=== PATIENT | female | born 2005 | race Two or more races ===

== ENCOUNTER 2024-06-07 15:58 | Observation (INO) | payer MEDICAID, SELFPAY ==
[2024-06-07 16:13] VITALS: BP 112/63; PULSE 115; RESP 16; RESP 99; TEMP 37.3
[2024-06-07 16:17] VITALS: BP 112/63; PULSE 115
[2024-06-07 16:20] VITALS: BMI 20.8
[2024-06-07 16:38] VITALS: BP 107/70; PULSE 115
[2024-06-07 16:57] LABS: Collection Type, Urine Clean Catch
[2024-06-07] MEDS: PROMETHAZINE INJ 25 MG/ML VIAL IM (16:59)
[2024-06-07] MEDS: MEPERIDINE INJ 50 MG/ML VIAL IM (16:59)
[2024-06-07 17:06] LABS: Bacteria,Urine Rare; Bilirubin,Urine Negative (Negative); Blood,Urine Negative (Negative); Clarity,Urine Clear (Clear/Hazy); Color,Urine Lt-Yellow (Lt Yel-Yel); Glucose, Urine Negative (Negative); Ketones,Urine Negative (Negative); Leukocyte Esterase,Urine Negative (Negative); Nitrite,Urine Negative (Negative); Protein,Urine Negative (Neg - Trace); RBC,Urine 1 /hpf (0-3); Specific Gravity,Urine 1.005 (1.001-1.035); Squamous Epithelial Cell,Urine 2 /hpf (0-5); Urobilinogen,Urine Negative mg/dL (0.0-1.0); WBC,Urine < 1 /hpf (0-5)
== END 2024-06-07 17:10 | disposition home or self-care (01) ==
PROVIDERS: Admitting Provider Specialist; Visit Provider Specialist
DX: O26.892 Other specified pregnancy related conditions, second trimester (principal); Z3A.26 26 weeks gestation of pregnancy; M54.50 Low back pain, unspecified
CPT/HCPCS: 59025; 59899; 81001; 87086; 96372; J2175; J2550

== ENCOUNTER 2024-08-14 16:56 | Observation (INO) | payer MEDICAID, SELFPAY ==
[2024-08-14 17:10] VITALS: BP 105/62; PULSE 73
[2024-08-14 17:18] VITALS: BP 105/62; PULSE 73; RESP 16; RESP 99; TEMP 36.7; O2SAT 99; BMI 23.2
[2024-08-14 18:07] VITALS: BP 112/67; PULSE 84
== END 2024-08-14 19:26 | disposition home or self-care (01) ==
PROVIDERS: Admitting Provider Specialist; Visit Provider Specialist
DX: O47.03 False labor before 37 completed weeks of gestation, third trimester (principal); Z3A.36 36 weeks gestation of pregnancy
CPT/HCPCS: 59025; 59899; G0378

== ENCOUNTER 2024-08-16 18:05 | Observation (INO) | payer MEDICAID, SELFPAY ==
[2024-08-16 18:10] VITALS: BMI 23.2
[2024-08-16 18:44] VITALS: BP 112/69; PULSE 104; RESP 18; TEMP 36.9; O2SAT 98
--- NOTE | 2024-08-16 18:52 | EKG_ITS ---
[facility] Test Date: 2024-08-16 Pat Name: FAISAL CAMPOS Department: Room: - Gender: Female Health Coordinator: : 2005 Requested By: Froy Chung Order Number: [id number] Reading MD: Froy Chung Measurements Intervals [place] Rate: 99 P: 60 MO: 144 QRS: 41 QRSD: 77 T: 40 QT: 333 QTc: 428 Interpretive Statements SINUS RHYTHM No previous ECG available for comparison /store/S0/[id number]/ecg/[id number].pdf
--- NOTE | 2024-08-16 18:52 | PD.EDPREG ---
ED OB Contraction Preg RMI/HPI General Chief complaint: Nausea/Vomiting/Diarrhea Stated complaint: SOB, NOT EATING OR DRINKING, COUGH Time Seen by Provider: 08/16/24 18:46 Arrival date/time: 08/16/24 18:05 RME / HPI RME / HPI Narrative: This section includes all my notes and documentations, including HPI, PE, and ED course. Froy Smalls MD HPI: 18-year-old female here to be evaluated with multiple symptoms. She is currently . Based on EDC 09/08/2024, GA today is 36 5/7 weeks. After eating about 2 hours ago, she reports upper abdominal pain and chest pain and upper back pain and nausea and diffuse numbness. Reports decreased movement. No bleeding. No other complaints. ROS: All negative except as documented in HPI. Physical Exam: General: Alert and oriented. No acute distress when remaining still. Eyes: Conjunctivae and lids clear. ENT: No nasal congestion. Neck: Supple. Heart: RRR. Lungs: No respiratory distress. Good air movement. No rhonchi, wheezing, rales. Abdomen: Soft and nontender. Normal bowel sounds. No distension. No rebound or guarding. Fundal height consistent with dates. Back: No CVA tenderness. Skin: Warm and dry. Neuro: Alert and oriented X 3. My interpretation of the EKG is NSR (99 bpm) with no ST?T changes. Patient is clear for further evaluation by our L&D department. Froy Smalls MD Related Data Home Medications ?Medication ?Instructions ?Recorded ?Confirmed aspirin 81 mg capsule 81 mg PO QDAY 06/07/24 08/14/24 vits no.124-ferrous fum 1 tab PO QDAY 06/07/24 08/14/24 27 mg iron-folic acid 800 mcg tablet ( Vitamin) Allergies Allergy/AdvReac Type Severity Reaction Status Date / Time No Known Allergies Allergy Verified 08/16/24 18:10 Course Quality Measures none Orders Category Date Time Status EKG (ED ONLY) *Do not use* NOW Care 08/16/24 18:52 Active EKG (ED Only) Stat Exams 08/16/24 18:52 Draft Vital Signs Vital signs: Vital Signs Temperature 98.4 F 08/16/24 18:44 Pulse Rate 104 H 08/16/24 18:44 Respiratory Rate 18 08/16/24 18:44 Blood Pressure 112/69 08/16/24 18:44 Pulse Oximetry (%) 98 08/16/24 18:44 Oxygen Delivery Method Room Air 08/16/24 18:44 OB/Uterine Contractions Patient data External records reviewed:: [facility] previous records Clinical information provided by:: patient Social determinants that could affect healthcare access:: none Patient has the following chronic illnesses:: Current in third trimester. How is presenting disease/condition affected by chronic disease/condition?: exacerbated by Evaluation data The following diagnostics were reviewed and interpreted by me:: EKG tracing(s) (My interpretation of the EKG: NSR (99 bpm) with no ST-T changes. Froy Smalls MD) Lab and/or radiology exams considered but not ordered:: None Interpretation Summary: Normal EKG Medications / Prescriptions Medications or Prescriptions considered but not ordered:: None Medication administrations:: None Consultations Consultation(s) initiated? (list below): No Diagnosis OB Contractions Differential Diagnosis: premature labor and other (GERD, PUD, gastritis) Most likely diagnosis given after review of the tests above:: labor Admission Indicated Admission indicated?: not indicated Explain why admission is indicated or not indicated:: Needs further evaluation by our L&D department. Admission Request Was there a request for admission?: No Disposition Plan Disposition Plan: other (specify) (Further care at our L&D department.) Discharge Plan Plan Patient Disposition: Admit Acute Care w/in Hospital Prescriptions/Referrals Prescriptions/Med Rec: No Action Vitamin 27 mg iron- 800 mcg Tablet 1 tab PO QDAY aspirin 81 mg Capsule 81 mg PO QDAY Referrals: Katelynn Mohamud NP [Primary Care Provider] - In 1 week Problem List Clinical Impression: Abdominal pain Patient/Caregiver Discharge Instructions Additional Instructions: Instructions from Dr. Smalls: After evaluation in the emergency room, including vitals and EKG, you are medically cleared for further evaluation at our L & D department. Print Language: Russian Stand Alone Forms: Beatrice Award Info., Patient Portal Info Letter
[2024-08-16 19:28] VITALS: BP 105/63; PULSE 86; RESP 18; RESP 98; TEMP 37.1
[2024-08-16 19:31] VITALS: BMI 23.2
== END 2024-08-16 19:53 | disposition home or self-care (01) ==
LOC: SERX 19:10 → S4SX 19:24
PROVIDERS: Admitting Provider Specialist; Emergency Provider Emergency Medicine; PCP Nurse Practitioner Family; Visit Provider Specialist
DX: O26.893 Other specified pregnancy related conditions, third trimester (principal); R10.10 Upper abdominal pain, unspecified; R07.9 Chest pain, unspecified; M54.6 Pain in thoracic spine; O36.8130 Decreased fetal movements, third trimester, not applicable or unspecified; Z3A.36 36 weeks gestation of pregnancy
CPT/HCPCS: 59025; 59899

== ENCOUNTER 2024-08-27 11:58 | Observation (INO) | payer MEDICAID, SELFPAY ==
[2024-08-27 12:00] VITALS: BP 122/76; PULSE 100; RESP 100; RESP 18; TEMP 36.6
[2024-08-27 12:02] VITALS: BMI 23.8
[2024-08-27 12:07] VITALS: BP 122/76; PULSE 100
[2024-08-27 12:41] LABS: ROM Kit Lot # 578010271; Swb Mxed in Solvent 1 min? Yes
[2024-08-27 12:42] LABS: ROM Swab Mixed By: PAUC1; Rupture of Fetal Membranes Negative (Negative)
[2024-08-27 13:08] VITALS: TEMP 36.6
== END 2024-08-27 13:05 | disposition home or self-care (01) ==
PROVIDERS: Admitting Provider Obstetrics & Gynecology; Visit Provider Obstetrics & Gynecology
DX: Z34.03 Encounter for supervision of normal first pregnancy, third trimester (principal); Z3A.38 38 weeks gestation of pregnancy
CPT/HCPCS: 59025; 59899; 84112

== ENCOUNTER 2024-09-14 04:07 | Inpatient (IN) | payer MEDICAID, SELFPAY ==
[2024-09-14] VITALS (198 sets, daily range): BP systolic 95–147; BP diastolic 49–79; PULSE 62–107; RESP 18; TEMP 36.7–36.8; O2SAT 87–100; BMI 24.7
[2024-09-14 04:55] LABS: Basophils % (Auto) 0 % (0-2.5); Eosinophils # (Auto) 0.1 Thou/mm3 (0.0-0.5); Eosinophils % (Auto) 1 % (0-10); Hematocrit 34.5 % (36.0-46.0); Immature Granulocytes % (Auto) 1 % (0-0); Immature Granulocytes Auto 0.09 Thou/mm3 (0.00-0.00); Lymphocytes # (Auto) 1.6 Thou/mm3 (1.0-4.8); Lymphocytes % (Auto) 16 % (10-50); Mean Corpuscular HGB Conc 34.8 g/dl (31.0-37.0); Mean Corpuscular Hemoglobin 31.2 pg (25.0-35.0); Mean Corpuscular Volume 90 fL (80-100); Monocytes # (Auto) 0.7 Thou/mm3 (0.0-0.8); Monocytes % (Auto) 7 % (0-12); Neutrophils # (Auto) 7.4 Thou/mm3 (1.8-7.7); Neutrophils % (Auto) 75 % (37-80); Nucleated Red Blood Cell % 0 /100 WBC (0); Platelet Count 110 Thou/mm3 (140-440); RDW Standard Deviation 44.7 fL (36.4-46.3); Red Blood Count 3.85 Miln/mm3 (4.00-5.20); White Blood Count 9.9 Thou/mm3 (3.6-11.0)
--- NOTE | 2024-09-14 05:03 | XR_ITS ---
Examination: Complete OB ultrasound greater than 14 weeks Date and time of exam: September 14, 2024 0530 hrs. Indications: Pelvic contractions beginning 2 days ago Findings: Viable intrauterine single fetus with single amniotic sac presentation cephalic Cardiac motion 155 BPM Placenta anterior grade 3 Amniotic fluid index 8.9 cm Ovaries obscured by bowel gas. Composite estimated gestational age based on BPD, head circumference, abdominal circumference, femur length is 39 weeks 6 days Estimated weight 3901.7 g. Survey of intracranial anatomy, spinal anatomy, abdominal anatomy, four-chamber heart performed with no abnormalities identified. Impression: Viable intrauterine gestation cephalic presentation.
[2024-09-14 05:09] LABS: Amphetamine/Metham Scrn,Ur OB Negative (Negative); Benzoylecgonine Screen, Ur OB Negative (Negative); Opiate Screen,Urine OB Negative (Negative); THC Screen,Urine OB Negative (Negative)
[2024-09-14 05:24] LABS: Syphilis Nonreactive (Nonreactive)
--- NOTE | 2024-09-14 08:51 | PD.LDPN ---
Documentation for date of: 09/14/24 OB Labor Progress Note Pain Control Comments: None Pelvic Exam Dilation (cm): Close Effacement (%): Long Comments: Cephalic by ultrasound Contractions Contraction frequency: Irregular Status Comments: Category 1 Assessment and Plan Comments: Cervical ripening followed by Pitocin when Zamora score is adequate
--- NOTE | 2024-09-14 09:11 | PD.LDHP ---
Documentation for date of: 09/14/24 OB Labor/Induct. HPI History of Present Illness Comments: H and P dictated on STAT line #9 in [place] [id number] Meds Home Medications and Allergies Home Medications ?Medication ?Instructions ?Recorded ?Confirmed ?Type aspirin 81 mg capsule 81 mg PO QDAY 06/07/24 09/14/24 History vits no.124-ferrous fum 1 tab PO QDAY 06/07/24 09/14/24 History 27 mg iron-folic acid 800 mcg tablet ( Vitamin) metronidazole 500 mg tablet mg 09/14/24 History Allergies Allergy/AdvReac Type Severity Reaction Status Date / Time No Known Allergies Allergy Verified 09/14/24 04:22 OB Exam Physical Exam Vital signs: Pulse BP Pulse Ox 82 115/60 97 09/14/24 08:38 09/14/24 08:38 09/14/24 09:07 OB Results Labs 09/14/24 04:30 Labs: Short CBC 09/14/24 Range/Units 04:30 WBC 9.9 (3.6-11.0) Thou/mm3 Hgb 12.0 (12.0-16.0) g/dL Hct 34.5 L (36.0-46.0) % Plt Count 110 L (140-440) Thou/mm3
[2024-09-14] MEDS: MISOPROSTOL 50 mCg TABLET PO ×3 (09:15→17:48)
--- NOTE | 2024-09-14 10:19 | ESHP_ITS ---
RE: FAISAL CAMPOS : 2005 DATE OF ADMISSION: 09/14/2024 HISTORY OF PRESENT ILLNESS: This is a 19-year-old 1, para 0 with intrauterine at 40 weeks and 6 days, who presents for induction of labor for postdates. The patient denies any leaking or bleeding. She reports normal movement. Her care is complicated by gestational thrombocytopenia with platelet count as low as 86,000 on 07/24/2024. Most recent platelet count was 97,000. The patient also used marijuana in the first trimester. She has had iron deficiency anemia for which she has been taking iron. ALLERGIES: NO KNOWN DRUG ALLERGIES. MEDICATIONS: 1. multivitamin one p.o. daily. 2. Baby aspirin 81 mg one p.o. daily to prevent preeclampsia. 3. Ferrous sulfate 325 mg one p.o. daily. PAST MEDICAL HISTORY: Gestational thrombocytopenia, iron deficiency anemia. SOCIAL HISTORY: She denies any alcohol, drug use, or smoking. She is single. Marijuana use with a positive urine drug screen on 03/25/2024. FAMILY HISTORY: Denies. PAST SURGICAL HISTORY: Denies. REVIEW OF SYSTEMS: She denies any chest pain, palpitations, cough, fever, shortness of breath, or lower extremity pain. She denies any headache, change in vision or right upper quadrant pain. PHYSICAL EXAMINATION: VITAL SIGNS: Blood pressure is 110/74, heart rate 88, respirations 18, temperature is 98.6. HEENT: Oropharynx and sclerae are clear. LUNGS: Clear to auscultation bilaterally. HEART: Regular rate and rhythm. ABDOMEN: Gravid consistent with estimated weight, 8.5 pounds. PELVIC: Per RN is closed and long. Ultrasound confirms cephalic presentation. EXTREMITIES: Nontender. SKIN: No gross rashes or lesions. NEUROLOGIC: No focal deficit. ASSESSMENT AND PLAN: Intrauterine at 40 weeks and 6 days, postdates induction of labor. Anticipate spontaneous vaginal delivery. Informed consent was obtained. The patient was made aware of the risks, complications, alternatives, and benefits of the proposed procedure and she agrees. She is aware of the risk of operative vaginal delivery and delivery, who agrees with these mode of delivery if indicated. DT: 09:10:01 TT: 10:03:00 Ref: [id number] - TID: [id number] [facility]
[2024-09-14] MEDS: fentaNYL CIT INJ 50 mCg/ML AMP 2ML 100 MCG IV ×2 (21:02→23:10)
[2024-09-15] VITALS (27 sets, daily range): BP systolic 94–123; BP diastolic 64–84; PULSE 82–110; RESP 15–18; TEMP 36.4–37.7; O2SAT 93–100
--- NOTE | 2024-09-15 00:35 | PD.LDPN ---
Documentation for date of: 09/15/24 OB Labor Progress Note Pain Control Comments: Fentanyl Pelvic Exam Dilation (cm): 8 Effacement (%): 80 station: 0 Amniotic membrane status: Ruptured Comments: Vaginal bleeding Contractions Contraction frequency: q3 m Status status: Category ll Assessment and Plan Comments: Vaginal bleeding consistent with placental abruption Emergency delivery Informed consent was obtained the patient was made aware the risk complication alternative benefits of the proposed procedure and she agrees
[2024-09-15] MEDS: FAMOTIDINE INJ 10 MG/ML VIAL 2 ML 20 MG IV (00:48)
[2024-09-15] MEDS: ceFAZolin/D5W 2 GM IV 2 GM/100 ML BAG IV (00:48)
--- NOTE | 2024-09-15 01:39 | PD.LDDS ---
DS: Providers Provider Date of admission: 09/14/24 04:07 Primary care physician: JULISSA Rowe MD Admitting Provider: Michelle Simeon MD ([facility]) Attending Provider on Admission: Elan Joy MD Attending Provider on DC: Elan Joy MD Discharging Provider: Elan Joy MD DS: Diagnosis Discharge Diagnosis (1) delivery delivered: Status: Acute (2) Placenta abruption, delivered, current hospitalization: Status: Acute (3) Post-dates : Status: Acute (4) Gestational thrombocytopenia: Status: Acute Problem List Completed Was Problem List Reviewed/Reconciled?: Yes Summary/Hosp Course Brief History: Placental abruption in active labor Peripartum Data Delivery Method: Low Transverse Exam Vital Signs Temp Pulse Resp BP Pulse Ox 98.3 F 89 18 115/67 99 09/14/24 19:23 09/15/24 00:38 09/14/24 16:00 09/15/24 00:38 09/15/24 00:51 Discharge Plan Plan Patient Disposition: HOME (Self Care) Patient condition on transfer: Stable Prescriptions/Referrals Prescriptions/Med Rec: New hydrocodone-acetaminophen 5-325 mg tablet 1 tab PO Q6H MDD 4 PRN (Reason: pain) Qty: 20 0RF ibuprofen 600 mg tablet 600 mg PO Q6H PRN (Reason: pain) Qty: 30 0RF Continued Vitamin 27 mg iron- 800 mcg Tablet 1 tab PO QDAY Discontinued aspirin 81 mg Capsule 81 mg PO QDAY metronidazole 500 mg tablet Patient Comments: Take 1 tablet by mouth twice a day Referrals: Shaquille Allen MD [Primary Care Provider] - Patient/Caregiver Discharge Instructions Discharge Activity: activity as tolerated Other Discharge Activity Instructions:: Follow up office with Dr Joy in 1 week. Print Language: Occitan Stand Alone Forms: Beatrice Award Info., Patient Portal Info Letter Planned Discharge Date 09/16/24
[2024-09-15] MEDS: MISOPROSTOL 200 mCg TABLET 800 MCG PR (01:48)
--- NOTE | 2024-09-15 01:55 | ESOP_ITS ---
Operative Note - PROJECT MANAGEMENT ENGINEER Procedure Date of procedure: 09/15/24 Procedure Performed: Primary low-transverse delivery via Pfannenstiel skin incision Indication: Placental abruption Pre-Op diagnosis: Intrauterine at 41 weeks gestation Induction of labor for postdates Active labor Category 2 tracing with episodes of prolonged decelerations Excessive vaginal bleeding suspect placental abruption Post-Op diagnosis: Intrauterine at 41 weeks gestation Induction of labor for postdates Active labor Category 2 tracing with episodes of prolonged decelerations Placental abruption Tight nuchal cord Body cord Anesthesia type: Spinal Procedure description: * Fluids: crystalloid Specimen: other (Placenta) Estimated blood loss (ml): 900 Findings: Viable infant Apgars 8 and 9 , cephalic presentation, occiput posterior, tight nuchal cord, body cord, placental abruption, uterus ovaries and fallopian tubes grossly within normal limits, placenta removed complete and intact. Complications: other (Uterine atony) Narrative: After proper informed consent was obtained and the patient made aware the risk complications alternatives and benefits of the proposed procedure she was taken to the operating room where she underwent duction of rapid spinal anesthesia. She was prepped and draped you sterile fashion. A timeout was performed. The Pfannenstiel skin incision was made with scalpel carried through to the underlying layer fascia with the Bovie. The fascia was nicked in the midline incision extended bilaterally the Bovie. The superior aspect the fascial incision was grasped with a Randolph clamps elevated the underlying rectus muscle dissected off with the Bovie the inferior aspect the fascial incision was then grasped with Bo clamps elevated the underlying rectus muscle dissected off with the Bovie. The rectus muscles were in the midline and the peritoneum was grasped between 2 Baca clamps and entered sharply with the Metzenbaum scissors. The incision was extended superiorly and inferiorly with good position of bladder. The bladder blade was then inserted and the vesicouterine peritoneum incised transversely and bladder flap created digitally. The 's head delivered the mouth and nose suctioned with the bulb suction the tight nuchal cord was reduced the shoulders delivered atraumatically, mouth and nose suction with bulb suction cord was clamped and cut and the infant was handed off waiting pediatric staff Cord blood and gases were sent. Placental abruption was noted. The placenta was almost completely detached from the wall of the uterus. The uterus was exteriorized and cleared of all clots and debris. The uterine incision was closed with #1-0 chromic catgut suture in a running locking fashion. A second layer of the same suture was used imbricate the first layer obtain excellent hemostasis. The vesicouterine peritoneum was closed with 2-0 chromic catgut suture. The fundus was firm the uterus was returned to the abdomen the gutters were cleared of all clots and debris the peritoneum closed with 0 chromic catgut suture running fashion. The muscle closed with 0 chromic suture running fashion. The subfascial layer was found to be hemostatic. The fascia was closed with 0 Vicryl beginning at each angle and ending at the center in a running fashion. The subcutaneous tissue was irrigated with normal saline solution found to be hemostatic closed with 2-0 chromic catgut suture running fashion. The skin was closed with 4-0 Monocryl and covered with Dermabond perineal dressing. And covered with sterile pressure dressing. The fundus was firm at the end of the procedure she tolerated the procedure well she was hemodynamically stable. I discussed with the patient the nature of her condition, the intraoperative findings, the expectation for recovery all questions answered. Surgical staff Pedro Harrys AMY Campa CRNA Diagnosis Discharge Diagnosis (1) Post-dates : Status: Acute (2) Placenta abruption, delivered, current hospitalization: Status: Acute (3) delivery delivered: Status: Acute Problem List Completed Was Problem List Reviewed/Reconciled?: Yes
[2024-09-15] MEDS: OXYTOCIN in NS 20 units 20 UNIT/1,000 ML BAG 125 UNIT IV (02:00)
[2024-09-15 06:16] LABS: Basophils % (Auto) 0 % (0-2.5); Eosinophils % (Auto) 0 % (0-10); Hematocrit 33.2 % (36.0-46.0); Hemoglobin 11.4 g/dL (12.0-16.0); Immature Granulocytes % (Auto) 1 % (0-0); Immature Granulocytes Auto 0.11 Thou/mm3 (0.00-0.00); Lymphocytes % (Auto) 6 % (10-50); Mean Corpuscular HGB Conc 34.3 g/dl (31.0-37.0); Mean Corpuscular Hemoglobin 30.8 pg (25.0-35.0); Mean Corpuscular Volume 90 fL (80-100); Monocytes # (Auto) 1.1 Thou/mm3 (0.0-0.8); Monocytes % (Auto) 6 % (0-12); Neutrophils # (Auto) 15.8 Thou/mm3 (1.8-7.7); Neutrophils % (Auto) 88 % (37-80); Nucleated Red Blood Cell % 0 /100 WBC (0); Platelet Count 93 Thou/mm3 (140-440); RDW Standard Deviation 43.8 fL (36.4-46.3)
[2024-09-15] MEDS: KETOROLAC INJ 30 MG/ML VIAL IVP ×3 (06:33→23:09)
--- NOTE | 2024-09-15 09:06 | PD.LDDELS ---
Data (Medel) Data : 1 Para: 0 Term: 0 : 0 : 0 Delivery Data (Medel) Labor Data ROM Date: 09/15/24 ROM Time: 01:09 Rupture Type: AROM Amniotic Fluid: Clear Delivery Data EDC: 09/15/24 EDC calculated by:: LMP/early US confirmation Labor Onset Stage 1 Date: 09/14/24 Labor Onset Stage 1 Time: 23:08 Labor Onset Stage 2 Date: 09/15/24 Labor Onset Stage 2 Time: 00:10 Delivery Date: 09/15/24 Delivery Time: 01:09 Gestational age (weeks): 41 Gestational age (days): 0 Placenta Delivery Date: 09/15/24 Placenta Delivery Time: 01:10 Delivered by: Elan Joy Delivery nurse: Maci Briseno Other staff at delivery: Nurse Other staff at delivery: Nursery Nurse Other staff at delivery: Danette Meier Other staff at delivery: Adeola Howe Delivery Method Delivery: Delivery Type: Primary Presentation: Vertex Position: OP Anesthesia Type Primary Anesthesia: Spinal Placenta Placenta Delivery: Manual Placenta Cultures Obtained: No Placenta Sent for Examination: Yes EBL Estimated blood loss (ml): 900 Umbilical Cord Umbilical Vessels: 3 Nuchal Cord: x1 Tightly Body Cord: x1 Additional Procedures None Complications Complications: None Data (Medel) Data Infant Gender: Male Weight Grams: 3500 1 Minute Total: 8 5 Minute Total: 9
--- NOTE | 2024-09-15 09:09 | PD.LDDS ---
DS: Providers Provider Date of admission: 09/14/24 04:07 Primary care physician: JULISSA Rowe MD Admitting Provider: Michelle Simeon MD ([facility]) Attending Provider on Admission: Elan Joy MD Consults: 09/15/24 02:09 Referral Routine Comment: Attending Provider on DC: Elan Joy MD Discharging Provider: Elan Joy MD DS: Diagnosis Problem List Completed Was Problem List Reviewed/Reconciled?: Yes Summary/Hosp Course Brief History: Placental abruption in active labor Peripartum Data Delivery Method: Low Transverse Procedures: Procedures Operation Date: 09/15/24 00:54 Actual Procedure Side Surgeon p in OB Elan Joy MD Stopover 1: Gender: Male Disposition of : home Exam Vital Signs Temp Pulse Resp BP Pulse Ox O2 Del Method 98.1 F 88 18 119/73 97 Room Air 09/15/24 05:10 09/15/24 05:10 09/15/24 05:10 09/15/24 05:10 09/15/24 05:10 09/15/24 05:10 Discharge Plan Plan Patient Disposition: HOME (Self Care) Patient condition on transfer: Stable Prescriptions/Referrals Prescriptions/Med Rec: New hydrocodone-acetaminophen 5-325 mg tablet 1 tab PO Q6H MDD 4 PRN (Reason: pain) Qty: 20 0RF ibuprofen 600 mg tablet 600 mg PO Q6H PRN (Reason: pain) Qty: 30 0RF Continued Vitamin 27 mg iron- 800 mcg Tablet 1 tab PO QDAY Discontinued aspirin 81 mg Capsule 81 mg PO QDAY metronidazole 500 mg tablet Patient Comments: Take 1 tablet by mouth twice a day Referrals: Shaquille Allen MD [Primary Care Provider] - Patient/Caregiver Discharge Instructions Discharge Activity: activity as tolerated Other Discharge Activity Instructions:: Follow up office with Dr Joy in 1 week. Print Language: Zimbabwean Stand Alone Forms: Beatrice Award Info., Patient Portal Info Letter Planned Discharge Date 09/17/24
[2024-09-15] MEDS: RINGERS LACTATED 1000 ML 1,000 ML 100 ML IV (10:19)
--- NOTE | 2024-09-15 10:24 | ESPR_ITS ---
RE: FAISAL CAMPOS : 2005 DATE OF SERVICE: 09/15/2024 S: Postoperative day #0, the patient denies any problem or complaints. Her urine output is adequate with Cobb catheter draining clear yellow urine. She is tolerating regular diet. She is passing flatus. She denies any nausea or vomiting. She denies any dizziness or lightheadedness. She denies any excessive vaginal bleeding. She has got adequate pain relief with Toradol. She denies any chest pain, palpitations, shortness of breath, or lower extremity pain. O: VITAL SIGNS: Blood pressure 119/73, heart rate 88, respirations 18, temperature 98.1, pulse oximetry is 97% on room air. LUNGS: Clear to auscultation bilaterally. HEART: Regular rate and rhythm. ABDOMEN: Dressing is dry and intact. Fundus is firm. EXTREMITIES: Nontender. Laboratory Data: Hemoglobin pre-delivery is 12.0, post-delivery is 11.4, platelet count 93,000. A: Postop day #0, status post delivery. P: Remove dressing, discontinue IV, encourage ambulation, support, possible discharge home tomorrow. DT: 09:14:00 TT: 10:22:00 Ref: [id number] - TID: [id number] MTDD
[2024-09-16 03:39] VITALS: BP 102/66; PULSE 81; RESP 18; TEMP 36.7
[2024-09-16] MEDS: IBUPROFEN TAB 400 MG TABLET 800 MG PO ×2 (07:14→18:27)
[2024-09-16] MEDS: SIMETHICONE 80 MG CHEW PO ×3 (07:17→19:29)
[2024-09-16 08:20] VITALS: BP 105/66; PULSE 79; RESP 20; TEMP 37.1
[2024-09-16 11:30] VITALS: BP 110/70; PULSE 80; RESP 16; TEMP 37.1
[2024-09-16] MEDS: HYDROcodone/APAP 5/325 TABLET 1 TAB PO (12:03)
[2024-09-16 19:40] VITALS: BP 117/75; PULSE 98; RESP 19; TEMP 36.7; O2SAT 98
[2024-09-16] MEDS: ACETAMINOPHEN 325 MG TABLET 650 MG PO (20:05)
--- NOTE | 2024-09-16 21:09 | PD.LDPPPRG ---
Subjective Subjective Interval history: Is a 19-year-old -0-0-1 status post unscheduled primary for suspected abruption by Dr Joy a little after midnight on 09/15/2024. The patient is resting comfortably. The father of the baby is at bedside. She has no complaints. Specifically no heavy bleeding, no nausea or vomiting, no fevers chills. She is breast-feeding and states this is going well. She is emptying her bladder and ambulating. Her pain is controlled with p.o. pain medications. Exam Vital Signs Temp Pulse Resp BP Pulse Ox O2 Del Method 98.7 F 80 16 110/70 95 Room Air 09/16/24 11:30 09/16/24 11:30 09/16/24 11:30 09/16/24 11:30 09/15/24 12:30 09/16/24 11:30 Narrative Exam Patient is resting comfortable. Abdomen is soft, fundus is firm, dressing is been removed. Incision is clean dry and intact. Extremities show no significant edema or erythema of her bilateral lower extremities. Objective Labs 09/15/24 05:37 Assessment & Plan Problem List (1) delivery delivered: Problem details: Patient is doing well. Routine postop care. Probable discharge in a.m. All questions answered Status: Acute (2) Placenta abruption, delivered, current hospitalization: Status: Acute (3) Post-dates : Status: Acute (4) Gestational thrombocytopenia: Status: Acute Time Spent With Patient Time: Total time spent is greater than 50% in coordination of care (as documented) at patient's floor/unit and/or counseling patient:
[2024-09-17] VITALS: BP 102/65; PULSE 88; RESP 17; TEMP 36.6; O2SAT 97
[2024-09-17] MEDS: IBUPROFEN TAB 400 MG TABLET 800 MG PO (02:31)
[2024-09-17 03:58] VITALS: BP 100/58; PULSE 80; RESP 17; TEMP 36.3; O2SAT 96
[2024-09-17 08:02] VITALS: BP 102/61; PULSE 88; RESP 17; TEMP 36.7; O2SAT 98
--- NOTE | 2024-09-17 09:25 | PD.LDPPPRG ---
Subjective Subjective Interval history: Delivery type: Patient doing well this morning. No acute complaints. Ambulating, tolerating p.o. and voiding without difficulty. HTN/Pre-Eclampsia screen: No chest pain, shortness of breath, headache, visual changes, epigastric or right upper quadrant pain. Breast-feeding, lochia diminishing. Bowel: Flatus+/ BM+ Exam Vital Signs Temp Pulse Resp BP Pulse Ox O2 Del Method 98.0 F 88 17 102/61 98 Room Air 09/17/24 08:02 09/17/24 08:02 09/17/24 08:02 09/17/24 08:02 09/17/24 08:02 09/17/24 08:02 Constitutional Constitutional: no acute distress Routine HEENT Exam Head: Present normocephalic and atraumatic Eye: Present EOMI and PERRL ENT: Present mucous membranes moist Routine Neck Exam Neck: Present supple and trachea midline Routine Respiratory Exam Respiratory: Present chest non-tender, lungs clear, normal breath sounds and no resp distress Routine Cardiovascular Exam Cardiovascular: Present RRR Routine Abdominal Exam Abdominal: Present soft and normoactive bowel sounds Routine Extremities Exam Extremities: Present full ROM Routine Skin Exam Skin: Present intact, dry and warm Routine Neurological Exam Neurological: Present alert, oriented X3 and CN II-XII intact Routine Psychiatric Exam Psychiatric: Present normal affect and normal thought process Objective Labs 09/15/24 05:37 Assessment & Plan Problem List (1) delivery delivered: Status: Acute Assessment and plan: PPD/POD#2 1. Continue routine care 2. Transition to PO meds. 3. Encourage to ambulate/ breast-feed 4. Anticipate discharge home today. (2) Placenta abruption, delivered, current hospitalization: Status: Acute (3) Post-dates : Status: Acute (4) Gestational thrombocytopenia: Status: Acute Time Spent With Patient Time: Total time spent is greater than 50% in coordination of care (as documented) at patient's floor/unit and/or counseling patient:
--- NOTE | 2024-09-17 09:25 | PD.LDDS ---
DS: Providers Provider Date of admission: 09/14/24 04:07 Primary care physician: JULISSA Rowe MD Admitting Provider: Michelle Simeon MD ([facility]) Attending Provider on Admission: Armen Felipe MD Consults: 09/15/24 02:09 Referral Routine Comment: Attending Provider on DC: Armen Felipe MD Discharging Provider: Armen Felipe MD DS: Diagnosis Discharge Diagnosis (1) delivery delivered: Status: Acute (2) Placenta abruption, delivered, current hospitalization: Status: Acute (3) Post-dates : Status: Acute (4) Gestational thrombocytopenia: Status: Acute (5) Abdominal pain: Status: Acute Problem List Completed Was Problem List Reviewed/Reconciled?: Yes Summary/Hosp Course Brief History: Placental abruption in active labor Peripartum Data Delivery Method: Low Transverse Procedures: Procedures Operation Date: 09/15/24 00:54 Actual Procedure Side Surgeon p in OB Elan Joy MD Time Spent with Patient Time attestation: Total time spent providing and/or coordinating discharge services: Exam Vital Signs Temp Pulse Resp BP Pulse Ox O2 Del Method 98.0 F 88 17 102/61 98 Room Air 09/17/24 08:02 09/17/24 08:02 09/17/24 08:02 09/17/24 08:02 09/17/24 08:02 09/17/24 08:02 Discharge Plan Plan Patient Disposition: HOME (Self Care) Patient condition on transfer: Stable Prescriptions/Referrals Prescriptions/Med Rec: New hydrocodone-acetaminophen 5-325 mg tablet 1 tab PO Q6H MDD 4 PRN (Reason: pain) Qty: 20 0RF ibuprofen 600 mg tablet 600 mg PO Q6H PRN (Reason: pain) Qty: 30 0RF Continued Vitamin 27 mg iron- 800 mcg Tablet 1 tab PO QDAY Discontinued aspirin 81 mg Capsule 81 mg PO QDAY metronidazole 500 mg tablet Patient Comments: Take 1 tablet by mouth twice a day Referrals: Shaquille Allen MD [Primary Care Provider] - Patient/Caregiver Discharge Instructions Discharge Activity: activity as tolerated Other Discharge Activity Instructions:: Follow up office with Dr Joy in 1 week. Education Materials: Breast Care After , After a Print Language: [place] Stand Alone Forms: [employer] Info., Patient Portal Info Letter, DC from Surgery Discharge Order Discharge Orders: Discharge (Routine); Ordered 09/17/24 Ordered By: Armen Felipe Planned Discharge Date 09/17/24
--- NOTE | 2024-09-17 10:52 | CHAP ---
Language barrier. Had a short prayer. I will refer to a [place] speaking person for spiritual visit.
== END 2024-09-17 10:55 | disposition home or self-care (01) | DRG 540 ==
LOC: S4SX 08:43 → S4NX 09-15 01:12
PROVIDERS: Specialist; Admitting Provider Obstetrics & Gynecology; PCP Family Medicine; Visit Provider Obstetrics & Gynecology
PROC: 10D00Z1 Extraction of Products of Conception, Low, Open Approach (ICD-10-PCS; CPT 59514; principal; 2024-09-15 01:15)
DX: O48.0 Post-term pregnancy (principal); Z37.0 Single live birth; Z3A.40 40 weeks gestation of pregnancy; O69.82X0 Labor and delivery complicated by other cord entanglement, without compression, not applicable or unspecified; O76 Abnormality in fetal heart rate and rhythm complicating labor and delivery; O62.2 Other uterine inertia; O69.1XX0 Labor and delivery complicated by cord around neck, with compression, not applicable or unspecified; D69.59 Other secondary thrombocytopenia; O99.12 Other diseases of the blood and blood-forming organs and certain disorders involving the immune mechanism complicating childbirth; O45.93 Premature separation of placenta, unspecified, third trimester
CPT/HCPCS: 36415; 59409; 76805; 80307; 85025; 86780; 86850; 86900; 86901; 94762; J0689; J1885; J2175; J2210; J2274; J2371; J2590; J3010; J3490; J7120; S0191; A9270; J2270